=== PATIENT | female | born 1995 | race Caucasian/White ===

== ENCOUNTER 2023-12-14 16:55 | Outpatient (CLI) | payer SELFPAY ==
[2023-12-14 17:26] LABS: HF Add Manual Diff No
[2023-12-14 17:39] LABS: Basophils # 0.1 10^3/uL (0.0-0.1); Basophils % 0.7 %; Eosinophils # 0.3 10^3/uL (0.0-0.8); Eosinophils % 2.9 %; Hematocrit 38.6 % (36-47); Lymphocytes # 2.3 10^3/uL (0.8-4.8); Lymphocytes % 25.9 %; Mean Corpuscular Hemoglobin 19.7 pg (27-33); Mean Corpuscular Volume 70.6 fl (85-98); Monocytes # 0.7 10^3/uL (0.2-0.9); Monocytes % 7.5 %; Neutrophils # 5.48 10^3/uL (1.8-7.7); Neutrophils % 62.7 %; Nucleated Red Blood Cells % 0 %; Platelet Count 346 10^3/cmm (157-399); Red Blood Count 5.47 10^6/uL (3.85-5.65); Red Cell Distribution Width 17.7 % (12.1-15.1); White Blood Count 8.75 10^3/uL (3.29-11.43)
[2023-12-14 17:40] LABS: Blood Urea Nitrogen 8 mg/dL (6-20); Calcium 9.1 mg/dL (8.5-10.5); Carbon Dioxide 25 mmol/L (22-29); Chloride 103 mmol/L (98-107); Glucose 83 mg/dL (65-115); Osmolality Calculated 283 mOsm/kg (285-295); Sodium 138 mmol/L (136-145)
[2023-12-14 17:41] LABS: Alanine Aminotransferase 16 U/L (0-33); Alkaline Phosphatase 84 U/L (35-105); Aspartate Amino Transferase 19 U/L (0-32); Chol HDL Ratio 3.69 mg/dL (0.0-4.40); Cholesterol 144 mg/dL (0-200); Globulin 2.8 g/dL (1.3-4.6); HDL Cholesterol 39 mg/dL (60-100); LDL Cholesterol Calculated 87 mg/dL (50-129); LDL HDL Ratio 2.23 RATIO (0.00-3.22); Total Bilirubin 0.2 mg/dL (0.15-1.2); Total Protein 6.8 g/dL (6.6-8.7); Triglycerides 90 mg/dL (0-150)
[2023-12-14 20:59] LABS: Thyroid Stimulating Hormone 2.91 uIU/mL (0.27-4.20)
[2023-12-14 21:31] LABS: 25 Hydroxy Vitamin D 15 ng/mL (30-100)
[2023-12-14 21:48] LABS: Estmated Average Glucose 105; Hemoglobin A1C 5.3 % (4.0-6.0)
== END 2023-12-14 16:56 | disposition home or self-care (01) ==
LOC: LAB 17:06
PROVIDERS: Visit Provider Dermatology
DX: Z01.89 Encounter for other specified special examinations (principal)